=== PATIENT | male | born 1960 | race Caucasian/White ===

== ENCOUNTER 2016-10-11 11:19 | Outpatient (CLI) | payer MEDICARE ==
[~2016-10-11] VITALS: Ht 177.8 cm; Wt 120.9 kg
--- NOTE | ~2016-10-11 | HEMODYNAMI ---
PATIENT:SCOTT AQUINO MEDICAL RECORD: [id number] : 56 LOCATION:DDemetrisCAT ADMISSION DATE: 10/11/16 Generatedon:10/11/201613:41 Patient name: SCOTT AQUINO Patient #: [id number] : 1960 Date of study: 10/11/2016 Page: Of Hemodynamic Procedure Report Patient Data Patient Demographics Procedure consent was obtained First Name: SCOTT Gender: Male Last Name: KENIA : 1960 Patient #: [id number] Age: 56 year(s) Race: SSN: [id number] Additional ID: [id number] Contact details Address: [address] [place] [address] State: [facility] Zip code: [address] Past Medical History Allergies Allergen Reaction Date Comments Reported Other allergy 10/11/2016 Melecio Carballo Admission Admission Data Admission Date: 10/11/2016 Admission Time: 11:19 Arrival Date: 10/11/2016 Arrival Time: 0:00 Admit Source: Other Insurance Payor: Medicare Height (in.): 70 BSA: 2.34 (m2) Height (cm.): 177.8 BMI: 37.74 (kg/m2) Weight (lbs.): 263 Weight (kg.): 119.29 Lab Results Lab Result Date: 10/11/2016 Lab Result Time: 0:00 Biochemistry Name Units Result Min Max BUN mg/dl 17 --(---*)-- 7 18 Creatinine mg/dl 0.9 --(-*--)-- 0.6 1.3 CBC Name Units Result Min Max Hemoglobin g/dl 12.9 -*(----)-- 13.5 17.5 Procedure Procedure Types Cath Procedure Diagnostic Procedure PPM/ICD PPM Ventricular Implant Procedure Description Procedure Date Procedure Date: 10/11/2016 Procedure Start Time: 13:09 Procedure End Time: 13:36 Procedure Staff Name Function Steven Abrams MD Performing Physician Skye Guillaume RT Scrub Mariaa Castillo RN Nurse Deanne Miranda RT Monitor Nils Carter MD Assisting physician Indication Syncope Procedure Data Cath Procedure Fluoroscopy Diagnostic fluoroscopy Total fluoroscopy Time: 0.8 time: 0.8 min min Diagnostic fluoroscopy Total fluoroscopy dose: dose: 30.63 mGy 30.63 mGy Contrast Material Contrast Material Type Amount (ml) Isovue 370 0 Estimated blood loss: 5 ml Procedure Complications No complications Procedure Medications Medication Administration Route Dosage Oxygen NC 2 l/min Bupivacaine 0.5% S.Q. 20 ml Lidocaine 1% with added to field 20 ml Epi Ancef (1Gm/50ml NS) I.V.P.B 1 g Ancef Irrigation Topical 1 g (1gm/500ml NS) Fentanyl I.V. 50 mcg Versed I.V. 1 mg Hemodynamics Rest BSA: 2.34 (m2) HGB: 12.9 (g/dl) O2 Consumption: Estimated: 263.03 (ml/min) O2 Co nsumption indexed: Estimated:112.41 (ml/min/m) Heart Rate: 55 (bpm) Snapshots Pre Cath Intra NCS Post Cath Vital Signs Time Heart Resp SPO2 NIBP (mmHg) Rhythm Pain Sedation Rate (ipm) (%) Status Level (bpm) 12:58:26 74 16 100 124/78(115) NSR 0 (11) 10(A) , No pain 13:02:42 66 20 100 114/80(106) NSR 0 (11) 10(A) , No pain 13:06:50 74 19 99 114/84(100) NSR 0 (11) 10(A) , No pain 13:11:02 66 16 91 118/79(103) NSR 0 (11) 10(A) , No pain 13:15:18 69 17 96 119/76(108) NSR 0 (11) 10(A) , No pain 13:19:27 107 16 95 127/93(120) NSR 0 (11) 10(A) , No pain 13:23:39 53 23 98 131/98(120) NSR 0 (11) 10(A) , No pain 13:27:53 77 20 96 135/101(115) NSR 0 (11) 10(A) , No pain 13:32:11 76 19 94 127/86(108) NSR 0 (11) 10(A) , No pain 13:36:26 65 16 97 126/91(107) NSR 0 (11) 10(A) , No pain Medications Time Medication Route Dose Verified Delivered Reason Notes Effective ness by by 12:52:49 Oxygen NC 2 Mariaa Mariaa used for l/min Castillo Castillo coach RN 12:53:03 Bupivacaine S.Q. 20 ml Mariaa Mariaa used for 0.5% Castillo Castillo coach RN 12:53:12 Lidocaine added 20 ml Mariaa Mariaa used for 1% with Epi to Castillo Castillo procedure field RN RN 12:53:24 Ancef I.V.P.B 1 g Mariaa Mariaa Per (1Gm/50ml Castillo Castillo physician NS) RN RN 12:53:34 Ancef Topical 1 g Mariaa Mariaa used for Irrigation Castillo Castillo procedure (1gm/500ml RN RN NS) 13:10:09 Fentanyl I.V. 50 Mariaa Mariaa for mcg Castillo Castillo sedation RN RN 13:10:15 Versed I.V. 1 mg Mariaa Mariaa for Castillo Castillo sedation RN photograph finisher Log Time Note 11:48:27 Informed consent obtained and on chart 11:48:50 Diagnostic Cath Status : Elective 11:49:29 Indication : Syncope 11:50:49 Admit Source: Other 11:50:53 Patient Height : 177.8 inches 11:51:00 Patient Weight : 119.29 lbs 11:51:14 Arrival Date: 10/11/2016 12:00:00 AM 11:51:35 Insurance Payor : Medicare 12:25:00 Mariaa Castillo RN sent for patient. Start room use. 12:39:07 Time tracking: Regular hours 12:39:11 Plan of Care:Hemodynamics will remain stable., Cardiac rhythm will remain stable., Comfort level will be maintained., Respiratory function will remain adequate., Patient/ family verbilizes understanding of procedure., Procedure tolerated without complication., Recovers from procedure without complications.. 12:42:01 Lab Result : BUN 17 mg/dl 12:42:01 Lab Result : Hemoglobin 12.9 g/dl 12:42:01 Lab Result : Creatinine 0.9 mg/dl 12:44:10 Patient received from Outpatients to [facility] 1 Alert and oriented. Tansferred to table in Supine position. 12:44:11 Warm blankets applied, and lino hugger turned on for patient comfort. 12:44:12 Correct patient and procedure confirmed by team. 12:44:13 ECG and BP/O2 sat monitors applied to patient. 12:52:49 Oxygen 2 l/min NC was given by Mariaa Castillo RN; used for procedure; 12:53:03 Bupivacaine 0.5% 20 ml S.Q. was given by Mariaa Castillo RN; used for procedure; 12:53:12 Lidocaine 1% with Epi 20 ml added to field was given by Mariaa Castillo RN; used for procedure; 12:53:24 Ancef (1Gm/50ml NS) 1 g I.V.P.B was given by Mariaa Castillo RN; Per physician; 12:53:34 Ancef Irrigation (1gm/500ml NS) 1 g Topical was given by Mariaa Castillo RN; used for procedure; 12:57:17 Vital chart was started 12:57:34 Baseline sample Acquired. 12:57:38 Rhythm: atrial fibrillation 12:57:39 Full Disclosure recording started 12:57:52 H&P Date Dictated: 10/04/2016 Within 30 days and on chart., H&P Addendum completed by physician on day of procedure. (MUST COMPLETE FOR ALL OUTPATIENTS). 12:57:54 Pre-procedure instructions explained to patient. 12:57:54 Pre-op teaching completed and patient verbalized understanding. 12:57:56 Family in waiting room. 12:57:57 Patient NPO since Midnight. 12:58:20 Patient allergic to Other allergyAleve, Codeine 12:58:22 Is the patient allergic to Iodine/contrast media? No. 12:58:24 Was the patient premedicated? No 12:58:27 Is patient on blood thinner?No 12:58:40 Patient diabetic? Yes. 12:58:41 If diabetic: On Metformin? Yes 12:58:44 If on Metformin: Last Dose? 10/10/2016 12:58:47 Previous problem with sedation/anesthesia? No ? 12:58:49 Snore? Yes 12:58:50 Sleep apnea? No 12:58:51 Deviated septum? No 12:58:52 Opens mouth fully? Yes 12:58:52 Sticks out tongue? Yes 12:58:54 Airway obstruction? No ? 12:58:57 Dentures? No ? 12:59:00 Pre procedure: right dorsailis pedis pulse 1+ Palpable, but thready & weak; easily obliterated 12:59:02 Patient pain scale 0/10 ?. 12:59:27 IV patent on arrival in left hand with 0.9% NaCl at O. 12:59:30 Lab results completed and on chart. 12:59:36 Mid Chest area was prepped with chlora-prep and draped in sterile fashion 12:59:37 Alarms reviewed by R. N. 12:59:37 Sharps counted by scrub and verified by R.N. 12:59:48 Use device set Pacemaker Set 12:59:49 Mepilex Dressing opened to sterile field. 12:59:54 2.0 Ticron Multipack opened to sterile field. 12:59:54 3.0 Vicryl Multipack [id number] opened to sterile field. 12:59:55 5.0 Monocryl PS2 [id number] opened to sterile field. 12:59:57 Immobilizer Extra Large opened to sterile field. 13:00:54 Procedure type changed to Cath procedure, Diagnostic procedure, PPM/ICD, PPM Ventricular Implant 13:01:20 Medtronic Adapta PPM Single Generator opened to sterile field. 13:03:10 Medtronic 4092-52 PPM Lead opened to sterile field. 13:09:01 Physician arrived 13:09:02 --------ALL STOP TIME OUT------ 13:09:02 Final Timeout: patient, procedure, and site verified with staff and physician. All members of the team are in agreement. 13:09:05 Mid Chest site verified by team. 13:09:10 Physical assessment completed. ASA score P 2 - A patient with mild systemic disease as per Steven Abrams MD. 13:09:15 Sedation plan: IV Moderate Sedation Versed, Fentanyl 13::22 Procedure started. 13::09 Fentanyl 50 mcg I.V. was given by Mariaa Castillo RN; for sedation; 13::15 Versed 1 mg I.V. was given by Mariaa Castillo RN; for sedation; 13:13:37 Medtronic retail field representative Tyrell Hughes present for procedure. 13:14:26 Pre sharps counted by scrub and verified by RN: Sutures: 14 Sponges: 5 Stick needles: 2 Skin needles: 2 Blade: 1 Cautery: 1 13:14:30 Grounding pad site Left thigh. 13:14:32 Grounding pad site free from injury. 13:14:38 Lidocaine 1% w/epi to left subclavicular area by Nils Carter MD. 13:14:41 Incision made to left subclavicular area. 13:19:03 Generator pocket made/opened. 13:20:14 Left subclavian vein accessed with 7Fr Safe Sheath. 13:22:04 Ventricular lead inserted and advanced. 13:22:40 Baseline sample Acquired. 13:24:43 Ventricular lead positioned. 13:26:59 Peel-a-way sheath was split and removed. 13:29:54 Ventricular lead attachment was completed with 2-0 ticron. 13:31:42 PPM Single was attached to lead(s) and inserted into pocket. 13:33:15 Generator was sutured in place with 2-0 ticron. 13:33:16 Device pocket was irrigated with Ancef. 13:33:19 Subcutaneous closure was completed with 3-0 vicryl plus. 13:35:25 Skin closure was completed with 5-0 monocryl. 13:35:36 Lt Chest incision was dressed with Mepilex dressing. 13:35:43 Procedure ended.(Physican Out) 13:35:56 Fluoroscopy time 00.80 minutes. 13:36:06 Fluoroscopy dose: 30.63 mGy 13:36:06 Flurop Dose total: 30.63 13:36:09 Contrast amount:Isovue 370 0ml. 13:36:11 Sharps counted by scrub and verified by R.N. 13:36:16 Insertion/operative site no bleeding no hematoma. 13:36:24 Post left sublavian artery:stable 13:36:26 Post Procedure Pulses reassessed and unchanged 13:36:29 Post procedure rhythm: unchanged. 13:36:32 Estimated blood loss: 5 ml 13:36:33 Post procedure instruction explained to patient.Patient verbalizes understanding. 13:36:33 Patient needs reinforcement of post procedure teaching. 13:36:35 Procedure and supply charges have been captured, reviewed, submitted and are correct. 13:36:39 Procedure Complication : No complications 13:36:41 Vital chart was stopped 13:36:41 See physician's report for complete and final results. 13:36:45 Report given to Med II. 13:36:47 Patient transfered to Med II with Stretcher. 13:36:49 Procedure ended. 13:36:49 Full Disclosure recording stopped 13:36:53 End room use (Document Last) 13:40:25 Parameters--Ventricular P/R Wave: 4.5mV. Current: 0.4mA; Threshold: 0.3V; Impedence: 621OHMS. Device Usage Item Name Manufacture Quantity Catalog Hospital Part Current Minimal Lot# / Number Charge Number Stock Stock Serial# Code Mepilex [place] 1 [id number] 053251 [id number] 5 Dressing Health 2.0 Ticron Ethicon 9 [id number] 770203 06634 747754 5 Multipack 3.0 Vicryl Ethicon 1 [id number] 660202 743125 184949 5 Multipack [id number] 5.0 Ethicon 1 [id number] 883212 123765 994733 5 Monocryl PS2 Y495G Immobilizer [place] 1 [id number] 479132 110288 219923 5 Extra Large Health Medtronic Medtronic 1 [id number] 413423 126962 5 [id number] Adapta PPM EXP Single 02-13-18 Generator Medtronic Medtronic 1 4092-52 012887 403637 5 [id number] 4092-52 PPM EXP Lead 11-13-16 Signature Audit [place] Stage Time Signature Unsigned Intra-Procedure 10/11/2016 Deanne Miranda 1:41:07 PM RT(R) Signatures Monitor : Deanne Miranda RT Signature : Date : Time : [facility] [address] [place] [address]
[2016-10-11] MEDS ORDERED: TAZTIA XT360 MG PO ×2 (11:52→11:58)
[2016-10-11] MEDS ORDERED: PROZAC10 MG PO (11:53)
[2016-10-11] MEDS ORDERED: MOBIC7.5 MG PO (11:54)
[2016-10-11] MEDS ORDERED: TRAZODONE HCL50 MG PO (11:54)
[2016-10-11] MEDS ORDERED: EFFEXOR75 MG PO (11:55)
[2016-10-11] MEDS ORDERED: REGLAN10 MG PO (11:59)
[2016-10-11] MEDS ORDERED: PROTONIX40 MG PO (11:59)
[2016-10-11] MEDS ORDERED: PAMELOR 25 MG C25 MG PO (12:01)
[2016-10-11] MEDS ORDERED: PRAVACHOL40 MG PO (12:02)
[2016-10-11] MEDS ORDERED: GLUCOPHAGE1000 MG PO (12:05)
[2016-10-11] MEDS ORDERED: BETAPACE 80 MG80 MG PO (12:06)
[2016-10-11] MEDS ORDERED: ALDACTONE50 MG PO (12:06)
[2016-10-11] MEDS ORDERED: COUMADIN5 MG PO (12:07)
[2016-10-11] MEDS ORDERED: NITROSTAT0.4 MG SL (12:08)
[2016-10-11 12:26] VITALS: BP 131/86; BMI 38.2
[2016-10-11 12:29] LABS: INR 1.12 (0.85-1.17); PROTIME 14.2 SECONDS (11.6-15.0)
[2016-10-11 12:30] LABS: APTT 29.8 SECONDS (22.8-39.4); BASOPHILS 0.5 % (0.0-2.0); EOSINOPHILS 1.6 % (0-7); HEMATOCRIT 37.5 % (42.0-54.0); HEMOGLOBIN 12.9 g/dL (13.5-17.5); IMMATURE GRANULOCYTES 0.6 % (0-5); LYMPHOCYTES 27.2 % (15-50); MCH 34.8 pg (26.0-34.0); MCHC 34.4 g/dL (31.0-37.0); MCV 101.1 fL (80.0-100.0); MEAN PLATELET VOLUME 10.5 fL (7.4-10.4); MONOCYTES 8.6 % (2-11); NEUTROPHILS 61.5 % (40-80); PLATELET COUNT 135 10x3/uL (130-400); RBC 3.71 10x6/uL (4.20-6.10); WBC 6.3 10x3/uL (4.8-10.8)
[2016-10-11 12:39] LABS: CALC OSMOLALITY 279 mosm/kg (275-300); CALCIUM 9.4 mg/dL (8.5-10.1); CARBON DIOXIDE 29.3 mmol/L (21.0-32.0); CHLORIDE - SERUM 102 mmol/L (98-107); CREATININE - SERUM 0.9 mg/dL (0.6-1.3); GLUCOSE 93 mg/dL (74-106); POTASSIUM - SERUM 4.4 mmol/L (3.5-5.1); SODIUM 139 mmol/L (136-145); UREA NITROGEN 17 mg/dL (7-18); eGFR NON AFRICAN AMERICAN > 90 mL/min (90-120)
--- NOTE | 2016-10-11 14:06 | NUR ---
TRANSFER FROM SALES SPECIALIST BY BED. VS WNL. LEFT CHEST DRSG CLEAN AND DRY. LEFT ARM IN SLING. WILL CONT. PLAN OF CARE.
[2016-10-11 14:43] VITALS: BP 119/68; Ht 177.8 cm; Wt 120.9 kg
[2016-10-11 16:00] VITALS: BP 110/68
--- NOTE | 2016-10-11 19:32 | NUR ---
RESUMED CARE OF PT, LYING IN BED RESPIRATIONS EVEN AND UNLABORED ON CPAP. 75 CAF ON TELEMETRY. LEFT FOREARM SALINE LOCKED. LEFT CHEST INCISION C/D/I, LEFT ARM IN SLING. NO NEEDS VOICED AT THIS TIME. CALL LIGHT IN REACH. WILL CONTINUE TO MONITOR. SEE NURSE ASSESSMENT.
[2016-10-11 20:00] VITALS: BP 130/86
[2016-10-12] VITALS: BP 124/99
[2016-10-12 04:00] VITALS: BP 128/85
[2016-10-12 08:00] VITALS: BP 142/94
--- NOTE | 2016-10-12 09:33 | NUR ---
TELEMETRY CAF. METRONICS CLEARED PACEMAKER FOR DC. IV AND TELEMETRY DCD. WILL CONT. PLAN OF CARE.
[2016-10-12] MEDS ORDERED: DILAUDID2 MG PO (09:45)
--- NOTE | 2016-10-12 10:22 | NUR ---
IV AND TELEMETRY DCD. DC PLANS GIVEN. UNDERSTANDING VOICED. ESCORTED TO CAR BY W/C.
--- NOTE | 2016-10-12 13:33 | OP ---
PATIENT NAME: SCOTT AQUINO MEDICAL RECORD: [id number] :56 LOCATION:D.CAT ADMISSION DATE: SURGEON: NILS BELL MD DATE OF OPERATION: 10/11/2016 PREOPERATIVE DIAGNOSES: 1. Atrial fibrillation. 2. Syncope. 3. Hypertension. 4. Hyperlipidemia. POSTOPERATIVE DIAGNOSES: 1. Atrial fibrillation. 2. Syncope. 3. Hypertension. 4. Hyperlipidemia. PROCEDURE: 1. A single lead left subclavian vein. Pacemaker placement. 2. Fluoroscopic interpretation. SURGEON: Nils Bell MD CO-SURGEON: Steven Abrams. REPORT OF OPERATION: The patient's left chest was prepped and draped in sterile fashion. A total of 25 mL of 1% lidocaine with epinephrine was infused into the tissues in the left upper chest. A skin incision was then made over the left upper lateral chest and a subcutaneous pouch was made overlying the pectoral fascia. A needle was used to cannulate the left subclavian vein. The guidewire was advanced with ease. Fluoro was used to note that the wire was in good position in the venous system. A dilator trocar device was placed over the wire and the wire and dilator were removed. The ventricular lead was inserted. At this point, Dr. Abrams came and manipulated the lead until it rested appropriately in the right ventricle. At this point, the trocar was removed. The lead was sutured down to the pectoral fascia using an interrupted 0 Tycron. The lead was then affixed to the pacemaker and the pacemaker was inserted into the subcutaneous pouch and sutured down with an 0 Tycron. We irrigated out the wound with antibiotic solution. The subcutaneous tissues were reapproximated with interrupted 3-0 Vicryls and the skin was closed with running subcutaneous 5-0 Monocryl. COMPLICATIONS: None. CONDITION: Stable. ANESTHESIA: Local. BLOOD LOSS: Minimal. TRANSINT:[id number] Voice Confirmation ID: [id number] DOCUMENT ID: [id number] OPERATIVE REPORT [id number] KENIASCOTT AKHTAR NILS BELL MD at 1333 CC: CARMENZA ORTIZ MD and BIJU ORELLANA MD [id number] DICTATION DATE: 10/11/16 1343 GAS LOAD DISPATCHER: 10/11/16 1439 DEP CLI 10/12/16 [facility] [address] [place] [address]
--- NOTE | 2016-10-15 14:24 | OP ---
PATIENT NAME: SCOTT AQUINO MEDICAL RECORD: [id number] :56 LOCATION:D.CAT ADMISSION DATE: SURGEON: TAMELA IBARRA MD DATE OF OPERATION: 10/11/2016 PROCEDURE: Lead portion of permanent pacemaker placement. SURGEON: Nils Carter MD INDICATION: Sick sinus syndrome with tachybrady. DESCRIPTION OF PROCEDURE: After left subclavian was cannulated via modified Seldinger technique via Dr. Carter, under fluoroscopic guidance, I placed the RV lead in the RV apex without difficulty. After adequate R waves and thresholds were obtained, the leads were attached to appropriate poles of the generator and the pocket was closed via Dr. Carter. IMPRESSION: Successful lead portion of permanent pacemaker placement. COMPLICATIONS: None. ESTIMATED BLOOD LOSS: Minimal. DISPOSITION: To the floor, stable. TRANSINT:[id number] Voice Confirmation ID: [id number] DOCUMENT ID: [id number] TAMELA IBARRA MD at 1424 CC: [id number] DICTATION DATE: 10/11/16 1334 DIVER TENDER: 10/11/162026 DEP CLI 10/12/16 [facility] [id number] [place] [address]
== END 2016-10-12 10:23 | disposition home or self-care (01) ==
LOC: D.CATH 11:19 → D.M2 14:02 → D.CATH 10-12 10:23
PROVIDERS: Internal Medicine Interventional Cardiology
DX: I49.5 Sick sinus syndrome (principal); I10 Essential (primary) hypertension; E78.5 Hyperlipidemia, unspecified

== ENCOUNTER 2016-11-08 03:05 | Emergency (ER) | payer MEDICARE ==
[~2016-11-08 03:05] MED LIST: ALDACTONE50 MG PO; BETAPACE 80 MG80 MG PO; COUMADIN5 MG PO; DILAUDID2 MG PO; EFFEXOR75 MG PO; GLUCOPHAGE1000 MG PO; MOBIC7.5 MG PO; NITROSTAT0.4 MG SL; PAMELOR 25 MG C25 MG PO; PRAVACHOL40 MG PO; PROTONIX40 MG PO; PROZAC10 MG PO; REGLAN10 MG PO; TAZTIA XT360 MG PO; TRAZODONE HCL50 MG PO
[2016-11-08 05:00] LABS: BASOPHILS 0.4 % (0.0-2.0); EOSINOPHILS 2.9 % (0-7); HEMATOCRIT 44.3 % (42.0-54.0); HEMOGLOBIN 15.2 g/dL (13.5-17.5); IMMATURE GRANULOCYTES 0.7 % (0-5); LYMPHOCYTES 20.7 % (15-50); MCH 34.8 pg (26.0-34.0); MCHC 34.3 g/dL (31.0-37.0); MCV 101.4 fL (80.0-100.0); MEAN PLATELET VOLUME 10.7 fL (7.4-10.4); NEUTROPHILS 67.3 % (40-80); PLATELET COUNT 111 10x3/uL (130-400); RBC 4.37 10x6/uL (4.20-6.10); RDW 13.2 % (11.5-14.5); WBC 7.3 10x3/uL (4.8-10.8)
[2016-11-08 05:13] LABS: APTT 52.3 SECONDS (22.8-39.4); INR 3.42 (0.85-1.17); PROTIME 34.9 SECONDS (11.6-15.0)
[2016-11-08 05:16] LABS: ALBUMIN 3.8 g/dL (3.4-5.0); ALKALINE PHOSPHATASE 66 U/L (46-116); ALT (SGPT) 23 U/L (10-68); BILIRUBIN - TOTAL 0.31 mg/dL (0.2-1.3); CALC OSMOLALITY 277 mosm/kg (275-300); CALCIUM 8.9 mg/dL (8.5-10.1); CARBON DIOXIDE 25.7 mmol/L (21.0-32.0); CHLORIDE - SERUM 102 mmol/L (98-107); GLUCOSE 86 mg/dL (74-106); POTASSIUM - SERUM 4.8 mmol/L (3.5-5.1); PROTEIN - SERUM 7.6 g/dL (6.4-8.2); SODIUM 139 mmol/L (136-145); UREA NITROGEN 16 mg/dL (7-18); eGFR NON AFRICAN AMERICAN 81 mL/min (90-120)
[2016-11-08 05:21] LABS: TROPONIN-I < 0.017 ng/mL (0.000-0.060)
== END 2016-11-08 06:50 | disposition home or self-care (01) ==
LOC: D.ER 03:05
PROVIDERS: Family Medicine
DX: S16.1XXA Strain of muscle, fascia and tendon at neck level, initial encounter (principal); X58.XXXA Exposure to other specified factors, initial encounter; Y93.89 Activity, other specified; Y92.89 Other specified places as the place of occurrence of the external cause; S39.012A Strain of muscle, fascia and tendon of lower back, initial encounter; I48.91 Unspecified atrial fibrillation

== ENCOUNTER 2017-10-22 09:25 | Emergency (ER) | payer MEDICARE ==
[2016-10-11 14:43] VITALS: BMI 38.2
[2017-10-22 09:53] LABS: APPEARANCE CLEAR (CLEAR); BILIRUBIN NEGATIVE (NEGATIVE); COLOR YELLOW (YELLOW); GLUCOSE 50 mg/dL (NEGATIVE); KETONE SMALL mg/dL (NEGATIVE); NITRITE NEGATIVE (NEGATIVE); PROTEIN NEGATIVE (NEGATIVE); UROBILINOGEN NORMAL (NORMAL)
[2017-10-22 10:04] LABS: BASOPHILS 0.5 % (0-2); EOSINOPHILS 0.8 % (0-7); HEMATOCRIT 45.6 % (42.0-54.0); IMMATURE GRANULOCYTES 0.5 % (0-5); LYMPHOCYTES 13.6 % (15-50); MCH 36.3 pg (26.0-34.0); MCHC 35.1 g/dL (31.0-37.0); MCV 103.4 fL (80.0-100.0); MEAN PLATELET VOLUME 10.7 fL (7.4-10.4); MONOCYTES 6.2 % (2-11); NEUTROPHILS 78.4 % (40-80); PLATELET COUNT 117 10x3/uL (130-400); RBC 4.41 10x6/uL (4.20-6.10); RDW 14.2 % (11.5-14.5); WBC 8.7 10x3/uL (4.8-10.8)
[2017-10-22 10:14] LABS: ALBUMIN 4.1 g/dL (3.4-5.0); ANION GAP 17.9 mmol/L (8-16); BILIRUBIN - TOTAL 0.61 mg/dL (0.2-1.3); CALCIUM 9.1 mg/dL (8.5-10.1); CARBON DIOXIDE 23.7 mmol/L (21.0-32.0); CREATININE - SERUM 1.2 mg/dL (0.6-1.3); POTASSIUM - SERUM 3.6 mmol/L (3.5-5.1)
== END 2017-10-22 13:40 | disposition home or self-care (01) ==
LOC: D.ER 09:25
PROVIDERS: Emergency Medicine
DX: K29.00 Acute gastritis without bleeding (principal); I10 Essential (primary) hypertension; E11.9 Type 2 diabetes mellitus without complications; G47.419 Narcolepsy without cataplexy; Z95.0 Presence of cardiac pacemaker; F17.200 Nicotine dependence, unspecified, uncomplicated; I48.91 Unspecified atrial fibrillation; I49.3 Ventricular premature depolarization

== ENCOUNTER 2017-10-26 06:43 | Inpatient (IN) | payer MEDICARE ==
[~2017-10-26] VITALS: Ht 177.8 cm; Wt 131.8 kg
[2017-10-26 07:52] LABS: BASOPHILS 0.5 % (0-2); HEMATOCRIT 46.2 % (42.0-54.0); HEMOGLOBIN 16.3 g/dL (13.5-17.5); IMMATURE GRANULOCYTES 0.5 % (0-5); LYMPHOCYTES 18.5 % (15-50); MCH 36.1 pg (26.0-34.0); MCHC 35.3 g/dL (31.0-37.0); MCV 102.2 fL (80.0-100.0); MEAN PLATELET VOLUME 10.5 fL (7.4-10.4); MONOCYTES 5.9 % (2-11); NEUTROPHILS 73.6 % (40-80); PLATELET COUNT 119 10x3/uL (130-400); RBC 4.52 10x6/uL (4.20-6.10); RDW 13.7 % (11.5-14.5); WBC 8.2 10x3/uL (4.8-10.8)
[2017-10-26 08:05] LABS: ALBUMIN 4.1 g/dL (3.4-5.0); ANION GAP 13.8 mmol/L (8-16); BILIRUBIN - TOTAL 0.54 mg/dL (0.2-1.3); CALCIUM 9.7 mg/dL (8.5-10.1); CARBON DIOXIDE 24.7 mmol/L (21.0-32.0); CREATININE - SERUM 1.5 mg/dL (0.6-1.3); POTASSIUM - SERUM 4.5 mmol/L (3.5-5.1)
[2017-10-26 09:45] LABS: APPEARANCE CLEAR (CLEAR); BILIRUBIN NEGATIVE (NEGATIVE); COLOR YELLOW (YELLOW); GLUCOSE NEGATIVE (NEGATIVE); KETONE SMALL mg/dL (NEGATIVE); NITRITE NEGATIVE (NEGATIVE); PROTEIN 1+ mg/dL (NEGATIVE); SPECIFIC GRAVITY 1.015 (1.005-1.020); UROBILINOGEN NORMAL (NORMAL)
[2017-10-26 09:46] LABS: BACTERIA FEW /hpf (NONE SEEN); EPITHELIAL CELLS 0-5 /hpf (0-5); HYALINE CAST 0-5 /lpf (NONE SEEN); MUCUS <1+ /lpf (NONE SEEN); RED CELLS - URINE 0-5 /hpf (0-5); WHITE CELLS - URINE 0-5 /hpf (0-5)
[2017-10-26 15:00] LABS: INR 2.18 (0.85-1.17); PROTIME 23.7 SECONDS (11.6-15.0)
[2017-10-26 19:14] VITALS: BP 131/75; Ht 177.8 cm; Wt 131.8 kg
[2017-10-26] MEDS ORDERED: HYDROCODONE-APA1 TAB PO (19:35)
[2017-10-26] MEDS ORDERED: OMEPRAZOLE40 MG PO (19:38)
[2017-10-26] MEDS ORDERED: COREG12.5 MG PO (19:39)
[2017-10-26] MEDS ORDERED: ADDERALL 30 MG30 MG PO (19:41)
[2017-10-26 21:57] VITALS: BP 116/80
[2017-10-27 00:57] VITALS: BP 118/84
[2017-10-27 05:37] LABS: BASOPHILS 0.4 % (0-2); EOSINOPHILS 1.5 % (0-7); HEMATOCRIT 39.5 % (42.0-54.0); HEMOGLOBIN 13.2 g/dL (13.5-17.5); IMMATURE GRANULOCYTES 0.2 % (0-5); LYMPHOCYTES 23.6 % (15-50); MCHC 33.4 g/dL (31.0-37.0); MEAN PLATELET VOLUME 10.4 fL (7.4-10.4); MONOCYTES 8.9 % (2-11); NEUTROPHILS 65.4 % (40-80); PLATELET COUNT 104 10x3/uL (130-400); RBC 3.77 10x6/uL (4.20-6.10); RDW 14.2 % (11.5-14.5)
[2017-10-27 05:45] VITALS: BP 124/84
[2017-10-27 05:45] LABS: MCV 104.8 fL (80.0-100.0); WBC 5.4 10x3/uL (4.8-10.8)
[2017-10-27 05:49] LABS: INR 2.55 (0.85-1.17); PROTIME 26.7 SECONDS (11.6-15.0)
[2017-10-27 06:03] LABS: ANION GAP 10.9 mmol/L (8-16); BILIRUBIN - TOTAL 0.5 mg/dL (0.2-1.3); CARBON DIOXIDE 28.6 mmol/L (21.0-32.0); CREATININE - SERUM 1.2 mg/dL (0.6-1.3); POTASSIUM - SERUM 4.5 mmol/L (3.5-5.1); PROTEIN - SERUM 6.1 g/dL (6.4-8.2)
[2017-10-27 09:16] VITALS: BP 113/74
[2017-10-27 12:08] VITALS: BP 109/70
[2017-10-27 16:07] VITALS: BP 123/88
[2017-10-27 23:18] VITALS: BP 151/97
[2017-10-28 04:00] VITALS: BP 132/88
[2017-10-28 05:10] LABS: BASOPHILS 0.5 % (0-2); EOSINOPHILS 1.4 % (0-7); HEMOGLOBIN 13.3 g/dL (13.5-17.5); IMMATURE GRANULOCYTES 0.5 % (0-5); MCH 35.3 pg (26.0-34.0); MCHC 33.3 g/dL (31.0-37.0); MCV 106.1 fL (80.0-100.0); MONOCYTES 9.8 % (2-11); NEUTROPHILS 55.8 % (40-80); PLATELET COUNT 103 10x3/uL (130-400); RBC 3.77 10x6/uL (4.20-6.10); RDW 13.9 % (11.5-14.5); WBC 4.4 10x3/uL (4.8-10.8)
[2017-10-28 05:26] LABS: INR 1.34 (0.85-1.17); PROTIME 16.1 SECONDS (11.6-15.0)
[2017-10-28 06:08] LABS: ALBUMIN 3.1 g/dL (3.4-5.0); ANION GAP 12.5 mmol/L (8-16); BILIRUBIN - TOTAL 0.67 mg/dL (0.2-1.3); CALCIUM 8.8 mg/dL (8.5-10.1); CARBON DIOXIDE 28.1 mmol/L (21.0-32.0); CREATININE - SERUM 1.2 mg/dL (0.6-1.3); POTASSIUM - SERUM 4.6 mmol/L (3.5-5.1); PROTEIN - SERUM 6.4 g/dL (6.4-8.2)
[2017-10-28 08:25] VITALS: BP 131/75
[2017-10-28 14:08] VITALS: BP 125/84
[2017-10-28 15:21] VITALS: BP 110/69
[2017-10-28 20:00] VITALS: BP 109/61
[2017-10-29 04:00] VITALS: BP 119/75
[2017-10-29 04:33] LABS: BASOPHILS 0.4 % (0-2); EOSINOPHILS 1.1 % (0-7); HEMATOCRIT 43.7 % (42.0-54.0); HEMOGLOBIN 14.2 g/dL (13.5-17.5); IMMATURE GRANULOCYTES 0.4 % (0-5); LYMPHOCYTES 16.7 % (15-50); MCHC 32.5 g/dL (31.0-37.0); MCV 107.6 fL (80.0-100.0); MEAN PLATELET VOLUME 10.8 fL (7.4-10.4); MONOCYTES 8.1 % (2-11); NEUTROPHILS 73.3 % (40-80); PLATELET COUNT 119 10x3/uL (130-400); RBC 4.06 10x6/uL (4.20-6.10); RDW 13.9 % (11.5-14.5); WBC 5.5 10x3/uL (4.8-10.8)
[2017-10-29 04:44] LABS: PROTIME 13.4 SECONDS (11.6-15.0)
[2017-10-29 04:45] LABS: INR 1.06 (0.85-1.17)
[2017-10-29 04:53] LABS: ALBUMIN 3.5 g/dL (3.4-5.0); ANION GAP 14.1 mmol/L (8-16); BILIRUBIN - TOTAL 1.2 mg/dL (0.2-1.3); CALCIUM 8.8 mg/dL (8.5-10.1); CARBON DIOXIDE 27.7 mmol/L (21.0-32.0); CREATININE - SERUM 1.4 mg/dL (0.6-1.3); POTASSIUM - SERUM 4.8 mmol/L (3.5-5.1)
[2017-10-29 09:39] VITALS: BP 95/69
[2017-10-29 12:02] VITALS: BP 109/69
[2017-10-29] MEDS ORDERED: MIRALAX527 GM PO (15:35)
[2017-10-29] MEDS ORDERED: DULCOLAX STOOL100 MG PO (15:36)
== END 2017-10-29 16:54 | disposition home or self-care (01) | DRG 357 ==
LOC: D.ER 06:43 → D.MS 10:03
PROVIDERS: Family Medicine; Surgery
PROC: 0FT44ZZ Resection of Gallbladder, Percutaneous Endoscopic Approach (ICD-10-PCS; principal; 2017-10-28 12:45)
DX: K56.7 Ileus, unspecified (principal); N17.9 Acute kidney failure, unspecified; E87.1 Hypo-osmolality and hyponatremia; F17.203 Nicotine dependence unspecified, with withdrawal; K82.8 Other specified diseases of gallbladder; I48.91 Unspecified atrial fibrillation; E86.0 Dehydration; Z95.0 Presence of cardiac pacemaker; G47.33 Obstructive sleep apnea (adult) (pediatric); E11.65 Type 2 diabetes mellitus with hyperglycemia; G47.419 Narcolepsy without cataplexy

== ENCOUNTER 2017-12-02 09:35 | Emergency (ER) | payer MEDICARE ==
[2017-10-26 19:14] VITALS: BMI 41.6
[~2017-12-02 09:35] MED LIST changes: +ADDERALL 30 MG30 MG PO; +COREG12.5 MG PO; +DULCOLAX STOOL100 MG PO; +HYDROCODONE-APA1 TAB PO; +MIRALAX527 GM PO; +OMEPRAZOLE40 MG PO
== END 2017-12-02 14:57 | disposition left against medical advice (07) ==
LOC: D.ER 09:35
DX: M54.5 Low back pain (principal)

== ENCOUNTER 2018-06-10 13:58 | Inpatient (IN) | payer MEDICARE ==
[~2018-06-10] VITALS: Ht 177.8 cm; Wt 137.9 kg
--- NOTE | ~2018-06-10 | EC ---
PATIENT:SCOTT AQUINO DATE OF SERVICE: 06/11/18 SEX: M MEDICAL RECORD: [id number] DATE OF : 56 LOCATION:D.M2 D.211 AGE OF PATIENT: 58 ADMISSION DATE: 06/11/18 REFERRING PHYSICIAN: INTERPRETING PHYSICIAN: BIJU HENNING MD ECHOCARDIOGRAM REPORT ECHO CHARGES 4 ECHO COMPLETE Date: 06/11/18 CLINICAL DIAGNOSIS: AFIB ECHOCARDIOGRAPHIC MEASUREMENTS (adult normal given) AC root (d.<3.7cm) 3.4 cm LV Septum d (<1.2 cm> 1.2 cm Valve Excursion 2.0 cm LV Septum (systole) 1.5 cm Left Atria (s.<4.0cm> 4.9 cm LVPW d(<1.2cm) 0.7 cm RV (d.<2.3cm) 3.7 cm LVPW (sytole) 1.4 cm LV diastole(<5.6CM) 6.1 cm MV E-F(>70mm/sec) cm LV systole 5.1 cm LVOT Diameter 2.0 cm MV exc.(>10mm) cm Est.ejection fraction (50-75%) % DOPPLER: LVIT cm/sec A 34 cm/sec E 107 cm/sec LA cm/sec RVSP 33.8 mmHg LVOT 84 cm/sec AOP1/2T m/s Asc. Ao 114 cm/sec RVOT 53 cm/sec RA cm/sec PA 62 cm/sec AV Gradient Peak 5.2 mmHg AV Mean 2.6 mmHg AV Area 2.6 cm MV Gradient Peak 5.3 mmHg MV Mean 2.1 mmHg MV Area cm COMMENTS: Manager Animation: Drew HAMILTON Selling Specialist: 1 Dr. Henning TAPE# PACS Pericardial Effusion N DATE OF SERVICE: 06/11/2018 FINDINGS: 1. Left ventricular chamber size is mildly dilated. Left ventricular systolic function is preserved. Ejection fraction equals 55%. 2. Left atrium is enlarged at 4.9 cm. Right atrium and right ventricle chamber sizes are iirsaalt-sx-jwgwlsux dilated. 3. Valvular structures have normal structure and motion. 4. Doppler interrogation reveals whdx-jw-veombtha mitral regurgitation and mild to moderate tricuspid regurgitation. No other valvular insufficiency or ECHOCARDIOGRAM REPORT [id number] SCOTT AQUINO stenosis. 5. No evidence of pericardial effusion or left ventricular thrombus. TRANSINT:[id number] Voice Confirmation ID: [id number] DOCUMENT ID: [id number] BIJU HENNING MD at 1914 CC: [id number] DICTATION DATE: 06/11/18 163 CERTIFIED ADAPTED PHYSICAL EDUCATOR: 06/11/18 1815 DIS IN 06/13/[address] [facility] [address] [place] [id number]
--- NOTE | ~2018-06-10 | OP ---
PATIENT NAME: SCOTT AQUINO MEDICAL RECORD: [id number] :56 LOCATION:D.M2 D.2114 ADMISSION DATE:06/11/18 SURGEON: PAYTON DEGROOT MD DATE OF OPERATION: 06/12/2018 PROCEDURE: EGD with biopsy. SURVEY RESEARCH MANAGER: Payton Degroot MD SCOPE: Olympus video gastroscope. MEDICATIONS: Per TIVA, the patient received 300 mg of propofol for this procedure, O2 4 liters. INDICATION FOR THE PROCEDURE: The patient has had a gastric sleeve and for the past 3 months he has had epigastric pain, nausea, vomiting and symptoms of reflux. He had an upper GI, which did not show any stricture, ulcerations and did exhibit good motility. He will have an EGD this date. FINDINGS: Informed consent was given. The patient was made comfortable with the above medications. After reaching an adequate level of sedation by slow IV push, the patient was placed on his left side. The endoscope was then advanced under direct visualization through the posterior pharyngeal area and advanced to the distal esophagus. A spasm was noted with advancement of the scope through the distal esophagus, but no derik stricture was appreciated. With the spasm abating, the distal esophageal pressure did appear to be normal. We did see some mild inflammation at the distal esophageal area and this was biopsied. No ulcers or erosions were appreciated. On entering the stomach, the gastric sleeve was appreciated and we began to examine all the areas of the stomach sequentially. The patient had mild inflammation throughout the stomach except at the antral area where some erosions were appreciated along with some streaking and erythema in this area. Biopsies were taken looking for Helicobacter pylori and histopathology. We then entered the duodenal bulb where a raised polypoid structure was noted and a biopsy was taken. We proceeded to the second part of the duodenum where only minimal inflammation was present, we also biopsied this area for thoroughness. The scope was then withdrawn. IMPRESSION: 1. The patient is status post a sleeve gastrectomy. 2. Mild inflammation present in the second part of the duodenum, biopsied. 3. Duodenal bulb polyp biopsied. 4. Erosive gastritis, most pronounced at the antral area, biopsy obtained. 5. Mild distal esophagitis, biopsied the gastroesophageal junction. 6. Distal esophageal spasms. No significant stricture. PLAN: We will place the patient on Protonix at a dose of 40 mg p.o. every day and famotidine 40 mg p.o. at bedtime. He should take the Protonix in the morning. Additionally for spasm, we will provide him with a prescription for Levsin 0.125 mg sublingual every 4 to 6 hours p.r.n. esophageal spasm and hopefully this will be helpful. The patient is to follow reflux precautions stringently, both dietary and positional as it has been noted that the patient does reflux significantly. This was seen in the upper GI and he is noted to reflux to the upper thoracic esophagus. He should avoid chocolate, tomato, citrus, caffeine, fatty foods, peppermint, not eat late at night and sit up for at least 2 hours after every meal, sleep with the head of the bed elevated at OPERATIVE REPORT [id number] SCOTT AQUINO bedtime. No anti-inflammatory drugs please. Return to clinic on a p.r.n. basis. TRANSINT:[id number] Voice Confirmation ID: [id number] DOCUMENT ID: [id number] PAYTON DEGROOT MD at 1304 CC: CHATO HARVEY MD [id number] DICTATION DATE: 06/12/18 1504 COMMISSIONING AGENT: 06/12/18 1640 DIS IN 06/13/18 [facility] [address] [place] [address]
--- NOTE | ~2018-06-10 | MORECARE ---
CASE MANAGEMENT DISCHARGE SUMMARY PATIENT: SCOTT AQUINO ULICES UNIT: [id number] ADM DATE: 06/11/18 AGE: 58 : 56 SEX: M ROOM/BED: D.6944 AUTHOR: ASHLEY AGUILAR PHYSICIAN: REFERRING PHYSICIAN: CARMENZA ORTIZ MD DATE OF SERVICE: 06/16/18 Discharge Plan Patient Name: SCOTT AQUINO Facility: [facility]:[place] : 1960 Planned Disposition: Home Anticipated Discharge Date: 06/13/18 Discharge Date: 06/13/2018 Expected LOS: 2 Initial Reviewer: [email or web address] Initial Review Date: 06/13/2018 Generated: 06/16/18 9:53 am Comments DCP- Discharge Planning Updated by [email or web address]: Gregoria Martinez on 06/13/18 11:[address] Patient Name: SCOTT AQUINO Admission Status: Urgent Accout number: [id number] Admission Date: 06-11-2018 : 1960 Admission Diagnosis: Attending: DIANA, Current LOS: 2 Anticipated DC Date: 06-13-2018 Planned Disposition: Home Primary Insurance: MEDICARE A & B Discharge Planning Comments: CM MET WITH PATIENT ABOUT DC PLANNING. PLANS TO DC TO HOME AND STATES SOMEONE WILL MERCHANDISE ASSOCIATE. STATES HE HAS A CAREGIVER THAT COMES 3 DAYS A WEEK, [facility] HAS IT THROUGH [facility]. CM WILL CONTINUE TO FOLLOW AND ASSIST NEEDED WITH DC PLANNING/NEEDS. Director Of Adult Epilepsy: Gregoria Martinez DCPIA - Discharge Planning Initial Assessment Updated by [email or web address]: Gregoria Martinez on 06/13/18 12:12 pm * Is the patient Alert and Oriented? Yes * PCP DIANA * Pharmacy ED * Preadmission Environment Home Alone * ADLs Independent * Equipment CPAP Walker Wheelchair * List name and contact numbers for known caregivers / representatives who currently or will assist patient after discharge: SISTER BAHENA, * Community resources currently utilized Private Duty Care * Please name any agencies selected above. [facility] [phone], [facility] HAS A CAREGIVER THAT COMES 3 TIMES A WEEK. * Additional services required to return to the preadmission environment? No * Can the patient safely return to the preadmission environment? Yes * Has this patient been hospitalized within the prior 30 days at any hospital? No Last DP export: 06/13/18 11:23 Patient Name: SCOTT AQUINO Page [id number] at 0853 All edits/amendments must be made on the electronic document DICTATION DATE: 06/16/18852 SERVICE CAR OPERATOR: BORIS 06/16/18852 RPT#: [id number] DC DATE:06/13/18 STATUS: DIS IN [facility] [address] [place] [address] END OF REPORT
--- NOTE | ~2018-06-10 | MORECARE ---
CASE MANAGEMENT DISCHARGE SUMMARY PATIENT: SCOTT AQUINO ULICES UNIT: [id number] ADM DATE: 06/11/18 AGE: 58 : 56 SEX: M ROOM/BED: D.2674 AUTHOR: ASHLEY AGUILAR PHYSICIAN: REFERRING PHYSICIAN: CARMENZA ORTIZ MD DATE OF SERVICE: 06/13/18 Discharge Plan Patient Name: SCOTT AQUINO Facility: [facility]:[place] : 1960 Planned Disposition: Home Anticipated Discharge Date: 06/13/18 Discharge Date: Expected LOS: 2 Initial Reviewer: [email or web address] Initial Review Date: 06/13/2018 Generated: 06/13/18 1:23 pm Comments DCP- Discharge Planning Updated by [email or web address]: Gregoria Martinez on 06/13/18 11:[address] Patient Name: SCOTT AQUINO Admission Status: Urgent Accout number: [id number] Admission Date: 06-11-2018 : 1960 Admission Diagnosis: Attending: DIANA, Current LOS: 2 Anticipated DC Date: 06-13-2018 Planned Disposition: Home Primary Insurance: MEDICARE A & B Discharge Planning Comments: CM MET WITH PATIENT ABOUT DC PLANNING. PLANS TO DC TO HOME AND STATES SOMEONE WILL SAND SHOVELER. STATES HE HAS A CAREGIVER THAT COMES 3 DAYS A WEEK, STATES HAS IT THROUGH [facility]. CM WILL CONTINUE TO FOLLOW AND ASSIST NEEDED WITH DC PLANNING/NEEDS. Life Skills Trainer: Gregoria Martinez DCPIA - Discharge Planning Initial Assessment Updated by [email or web address]: Gregoria Martinez on 06/13/18 12:12 pm * Is the patient Alert and Oriented? Yes * PCP DIANA * Pharmacy ED * Preadmission Environment Home Alone * ADLs Independent * Equipment CPAP Walker Wheelchair * List name and contact numbers for known caregivers / representatives who currently or will assist patient after discharge: SISTER BAHENA, * Community resources currently utilized Private [facility] * Please name any agencies selected above. [facility] [phone], [facility] HAS A CAREGIVER THAT COMES 3 TIMES A WEEK. * Additional services required to return to the preadmission environment? No * Can the patient safely return to the preadmission environment? Yes * Has this patient been hospitalized within the prior 30 days at any hospital? No Last DP export: 06/13/18 11:12 Patient Name: SCOTT AQUINO Page [id number] at 1223 All edits/amendments must be made on the electronic document DICTATION DATE: 06/13/181222 CHALK MACHINE OPERATOR: BORIS 06/13/181222 RPT#: [id number] DC DATE: STATUS: ADM IN [facility] [address] [place] [address] END OF REPORT
--- NOTE | ~2018-06-10 | MORECARE ---
CASE MANAGEMENT DISCHARGE SUMMARY PATIENT: SCOTT AQUINO ULICES UNIT: [id number] ADM DATE: 06/11/18 AGE: 58 : 56 SEX: M ROOM/BED: D.2114 AUTHOR: ASHLEY AGUILAR PHYSICIAN: REFERRING PHYSICIAN: CARMENZA ORTIZ MD DATE OF SERVICE: 06/13/18 Discharge Plan Patient Name: SCOTT AQUINO [facility] [facility] 1960 Planned Disposition: Home Anticipated Discharge Date: 06/13/18 Discharge Date: Expected LOS: 2 Initial Reviewer: [email or web address] Initial Review Date: 06/13/2018 Generated: 06/13/18 1:12 pm DCPIA - Discharge Planning Initial Assessment Updated by [email or web address]: Gregoria Martinez on 06/13/18 12:12 pm * Is the patient Alert and Oriented? Yes * PCP DIANA * Pharmacy ED * Preadmission Environment Home Alone * ADLs Independent * Equipment CPAP Walker Wheelchair * List name and contact numbers for known caregivers / representatives who currently or will assist patient after discharge: SISTER BAHENA, * Community resources currently utilized [facility] * Please name any agencies selected above. [facility] [phone], [facility] HAS A CAREGIVER THAT COMES 3 TIMES A WEEK. * Additional services required to return to the preadmission environment? No * Can the patient safely return to the preadmission environment? Yes * Has this patient been hospitalized within the prior 30 days at any hospital? No Patient Name: SCOTT AQUINO Page 47802 at 1212 All edits/amendments must be made on the electronic document DICTATION DATE: 06/13/18 1212 SOFTWARE TEST AND VALIDATION ENGINEER: BORIS 06/13/18 1212 RPT#: [id number] [place] DATE: STATUS: ADM IN [facility] [address] [place] [address] END OF REPORT
[~2018-06-10 13:58] MED LIST changes: -HYDROCODONE-APA1 TAB PO; +NORCO 10-325 TA1 TAB PO; +TAZTIA XT360 MG
[2018-06-10] MEDS ORDERED: FOLIC ACID1 MG PO (14:21)
[2018-06-10] MEDS ORDERED: CARDIZEM CD180 MG PO (14:26)
[2018-06-10 14:56] LABS: BASOPHILS 0.7 % (0-2); EOSINOPHILS 2.4 % (0-7); HEMATOCRIT 40.4 % (42.0-54.0); IMMATURE GRANULOCYTES 0.3 % (0-5); LYMPHOCYTES 19.2 % (15-50); MCHC 34.7 g/dL (31.0-37.0); MCV 106.9 fL (80.0-100.0); MEAN PLATELET VOLUME 10.5 fL (7.4-10.4); MONOCYTES 9.9 % (2-11); NEUTROPHILS 67.5 % (40-80); PLATELET COUNT 104 10x3/uL (130-400); RBC 3.78 10x6/uL (4.20-6.10); WBC 5.9 10x3/uL (4.8-10.8)
[2018-06-10 15:27] LABS: ALBUMIN 3.5 g/dL (3.4-5.0); ANION GAP 15.6 mmol/L (8-16); BILIRUBIN - TOTAL 0.93 mg/dL (0.2-1.3); CALCIUM 9.7 mg/dL (8.5-10.1); CARBON DIOXIDE 25.1 mmol/L (21.0-32.0); CREATININE - SERUM 1.3 mg/dL (0.6-1.3); POTASSIUM - SERUM 4.7 mmol/L (3.5-5.1); PROTEIN - SERUM 7.2 g/dL (6.4-8.2); THYROID STIMULATING HORMONE 1.9 uIU/mL (0.36-3.74)
[2018-06-10 15:32] VITALS: BP 136/77; BMI 43.7
[2018-06-10] MEDS ORDERED: XARELTO10 MG PO (17:04)
[2018-06-10 19:07] LABS: APPEARANCE CLEAR (CLEAR); BILIRUBIN NEGATIVE (NEGATIVE); COLOR YELLOW (YELLOW); GLUCOSE NEGATIVE (NEGATIVE); KETONE NEGATIVE (NEGATIVE); NITRITE NEGATIVE (NEGATIVE); PH 6.5 (5.0-6.0); PROTEIN NEGATIVE (NEGATIVE); UROBILINOGEN NORMAL (NORMAL)
[2018-06-10 20:00] VITALS: BP 125/81
[2018-06-11] VITALS: BP 118/74
[2018-06-11 04:00] VITALS: BP 109/48
[2018-06-11 06:18] LABS: INR 1.18 (0.85-1.17); PROTIME 14.6 SECONDS (11.6-15.0)
[2018-06-11 07:01] LABS: BASOPHILS 0.4 % (0-2); EOSINOPHILS 2.9 % (0-7); HEMATOCRIT 37.4 % (42.0-54.0); HEMOGLOBIN 12.8 g/dL (13.5-17.5); IMMATURE GRANULOCYTES 0.2 % (0-5); LYMPHOCYTES 28.1 % (15-50); MCH 36.4 pg (26.0-34.0); MCHC 34.2 g/dL (31.0-37.0); MCV 106.3 fL (80.0-100.0); MEAN PLATELET VOLUME 10.7 fL (7.4-10.4); NEUTROPHILS 57.4 % (40-80); PLATELET COUNT 96 10x3/uL (130-400); RBC 3.52 10x6/uL (4.20-6.10); WBC 4.5 10x3/uL (4.8-10.8)
[2018-06-11 07:06] LABS: ANION GAP 13.9 mmol/L (8-16); BILIRUBIN - TOTAL 0.84 mg/dL (0.2-1.3); CALCIUM 8.9 mg/dL (8.5-10.1); CARBON DIOXIDE 26.1 mmol/L (21.0-32.0); CHOL - HDL RATIO 2.4 ratio (2.3-4.9); CREATININE - SERUM 1.1 mg/dL (0.6-1.3); LDL-HDL RATIO 0.9 ratio (1.5-3.5); PROTEIN - SERUM 6.4 g/dL (6.4-8.2)
[2018-06-11 07:31] LABS: PLATELET ESTIMATE DECREASED
[2018-06-11 08:14] VITALS: BP 128/73
[2018-06-11 11:52] VITALS: BP 123/75
[2018-06-11 14:17] VITALS: Ht 177.8 cm; Wt 137.9 kg
[2018-06-11 15:03] VITALS: BP 116/71
[2018-06-11 20:00] VITALS: BP 138/55
[2018-06-12] VITALS: BP 125/76
[2018-06-12 04:00] VITALS: BP 140/60
[2018-06-12 06:16] LABS: BASOPHILS 0.5 % (0-2); EOSINOPHILS 3.1 % (0-7); HEMOGLOBIN 12.9 g/dL (13.5-17.5); IMMATURE GRANULOCYTES 0.3 % (0-5); LYMPHOCYTES 33.2 % (15-50); MCH 36.4 pg (26.0-34.0); MCHC 33.9 g/dL (31.0-37.0); MCV 107.3 fL (80.0-100.0); MEAN PLATELET VOLUME 11.3 fL (7.4-10.4); MONOCYTES 10.1 % (2-11); NEUTROPHILS 52.8 % (40-80); PLATELET COUNT 93 10x3/uL (130-400); RBC 3.54 10x6/uL (4.20-6.10); RDW 13.8 % (11.5-14.5); WBC 3.9 10x3/uL (4.8-10.8)
[2018-06-12 06:36] LABS: INR 1.1 (0.85-1.17); PROTIME 13.8 SECONDS (11.6-15.0)
[2018-06-12 06:38] LABS: CALC OSMOLALITY 279 mosm/kg (275-300); CALCIUM 8.8 mg/dL (8.5-10.1); CARBON DIOXIDE 26.6 mmol/L (21.0-32.0); CHLORIDE - SERUM 105 mmol/L (98-107); GLUCOSE 103 mg/dL (74-106); POTASSIUM - SERUM 3.9 mmol/L (3.5-5.1); SODIUM 140 mmol/L (136-145); UREA NITROGEN 16 mg/dL (7-18); eGFR NON AFRICAN AMERICAN 81 mL/min (90-120)
[2018-06-12 07:33] LABS: FOLATE (FOLIC ACID) - SERUM >20.0 ng/mL (>3.0)
[2018-06-12 07:48] VITALS: BP 139/81
[2018-06-12 11:31] VITALS: BP 139/81
[2018-06-12 20:00] VITALS: BP 132/73
[2018-06-13] VITALS: BP 115/72
[2018-06-13 04:00] VITALS: BP 118/74
[2018-06-13 06:11] LABS: HEMATOCRIT 36.6 % (42.0-54.0); HEMOGLOBIN 12.8 g/dL (13.5-17.5); MCH 36.6 pg (26.0-34.0); MEAN PLATELET VOLUME 10.2 fL (7.4-10.4); NEUTROPHILS 63.4 % (40-80); PLATELET COUNT 84 10x3/uL (130-400); RDW 13.4 % (11.5-14.5); WBC 4.3 10x3/uL (4.8-10.8)
[2018-06-13 06:14] LABS: MCV 104.6 fL (80.0-100.0)
[2018-06-13 06:26] LABS: ALBUMIN 2.9 g/dL (3.4-5.0); ANION GAP 12.8 mmol/L (8-16); BILIRUBIN - TOTAL 0.69 mg/dL (0.2-1.3); CALCIUM 8.7 mg/dL (8.5-10.1); CARBON DIOXIDE 26.2 mmol/L (21.0-32.0); CREATININE - SERUM 1.1 mg/dL (0.6-1.3); PROTEIN - SERUM 6.2 g/dL (6.4-8.2)
[2018-06-13 08:27] VITALS: BP 145/85
[2018-06-13] MEDS ORDERED: LEVSIN/ANASP0.125 MG SL (10:58)
[2018-06-13] MEDS ORDERED: ELIQUIS5 MG PO (10:58)
[2018-06-13] MEDS ORDERED: CARDIZEM CD240 MG PO (10:59)
[2018-06-13] MEDS ORDERED: LEVAQUIN750 MG PO (11:03)
[2018-06-13] MEDS ORDERED: PROTONIX40 MG PO (11:08)
[2018-06-13] MEDS ORDERED: PEPCID PO (11:08)
[2018-06-13] MEDS ORDERED: PEPCID40 MG PO (11:08)
[2018-06-13 11:59] VITALS: BP 143/83
== END 2018-06-13 15:49 | disposition home or self-care (01) | DRG 393 ==
LOC: D.M2 13:58 → OBSVTIME 13:58 → D.M2 13:58
PROVIDERS: Family Medicine; Internal Medicine Gastroenterology; Internal Medicine Nephrology
PROC: 0DB68ZX Excision of Stomach, Via Natural or Artificial Opening Endoscopic, Diagnostic (ICD-10-PCS; 2018-06-12)
PROC: 0DB48ZX Excision of Esophagogastric Junction, Via Natural or Artificial Opening Endoscopic, Diagnostic (ICD-10-PCS; 2018-06-12)
PROC: 0DB98ZX Excision of Duodenum, Via Natural or Artificial Opening Endoscopic, Diagnostic (ICD-10-PCS; principal; 2018-06-12 16:15)
DX: K31.7 Polyp of stomach and duodenum (principal); J18.9 Pneumonia, unspecified organism; F10.239 Alcohol dependence with withdrawal, unspecified; F17.213 Nicotine dependence, cigarettes, with withdrawal; I48.91 Unspecified atrial fibrillation; K29.00 Acute gastritis without bleeding; K20.9 Esophagitis, unspecified; K22.4 Dyskinesia of esophagus; I10 Essential (primary) hypertension; E78.5 Hyperlipidemia, unspecified; E11.9 Type 2 diabetes mellitus without complications; G40.909 Epilepsy, unspecified, not intractable, without status epilepticus; G47.419 Narcolepsy without cataplexy; E03.9 Hypothyroidism, unspecified; D53.9 Nutritional anemia, unspecified

== ENCOUNTER 2018-07-16 04:47 | Inpatient (IN) | payer MEDICARE ==
[~2018-07-16] VITALS: Ht 177.8 cm; Wt 131.5 kg
--- NOTE | ~2018-07-16 | CN ---
PATIENT NAME:SCOTT AQUINO MEDICAL RECORD: [id number] : 56 LOCATION:D.MS [id number] ADMIT DATE: 07/16/18 ACCOUNT: [id number] CONSULTING PHYSICIAN: BIJU ORELLANA MD REFERRING PHYSICIAN: ANA LAURA FARIAS MD DATE OF CONSULTATION: 07/18/2018 CARDIOLOGY CONSULTATION DIAGNOSES: 1. Atrial fibrillation. 2. Tachycardia. 3. Small-bowel obstruction. 4. Diabetes. 5. Coronary artery disease. 6. Hypertension. HISTORY OF PRESENT ILLNESS: This is a gentleman who presents with abdominal pain, found to have small-bowel obstruction. He does have a history of atrial fibrillation. He was previously on diltiazem, Eliquis, and sotalol for the atrial fibrillation. These meds have been held secondary to being n.p.o. and his bowel obstruction. Now, his atrial fibrillation is with rapid ventricular response. He continues to be n.p.o. PHYSICAL EXAMINATION: GENERAL APPEARANCE: Well-nourished, well-developed, appears stated age. Level of distress, comfortable. PSYCHIATRIC: Mental status, alert, normal affect. Orientation, oriented to time, place and person. EYES: Lids and conjunctiva, noninjected. No discharge, no pallor. ENT: Lips, teeth, gums, normal dentition. Oropharynx, no cyanosis, no pallor. NECK: Carotid arteries, bilateral normal upstroke, no bruits, no thrills. JUGULAR VEINS: No jugular venous pressure or distention. CERVICAL LYMPH NODES: Nontender, nonenlarged. THYROID: Not enlarged. Nontender. No nodules. LUNGS: Respiratory effort, unlabored. CHEST: Normal curvature. No thoracic deformity. No chest wall tenderness. Percussion, resonant. Auscultation, clear. No wheezes, no rales, no rhonchi. CARDIOVASCULAR: Precordial exam, nondisplaced. No heaves or pericardial thrills. Rate and rhythm, regular. Heart sounds, normal S1, normal S2. No S3, no gallop, no rub. Systolic murmur, not heard. Diastolic murmur, not heard. EXTREMITIES: No cyanosis, no edema. Peripheral pulses, full and equal in all extremities, except as noted. No bruits appreciated. ABDOMEN: Soft, nondistended. Normal aorta. No bruit. Nontender. No masses. Liver, nontender, no hepatomegaly. Spleen, nontender, no splenomegaly. MUSCULOSKELETAL: No joint tenderness. No joint swelling. No erythema. NEUROLOGICAL: Normal gait, normal strength, normal tone. SKIN: Warm and dry. OVERALL IMPRESSION: Atrial fibrillation, uncontrolled rate. Now that he is off his medications, we will use Lopressor IV 10 mg q.4 hours to control his rate. Restarting his oral medications when possible from a GI standpoint. TRANSINT:[id number] Voice Confirmation ID: [id number] DOCUMENT ID: [id number] CONSULT REPORT [id number] SCOTT AQUINO JEFFREY MD at 1025 CC: [id number] DICTATION DATE: 07/18/18948 ACCESS LIAISON: 07/18/18 1118 DIS IN 07/24/18 [id number] [place] [address]
--- NOTE | ~2018-07-16 | MORECARE ---
CASE MANAGEMENT DISCHARGE SUMMARY PATIENT: SCOTT AQUINO ULICES UNIT: [id number] ADM DATE: 07/16/18 AGE: 58 : 56 SEX: M ROOM/BED: D.2205 AUTHOR: ASHLEY AGUILAR PHYSICIAN: REFERRING PHYSICIAN: ANA LAURA FARIAS MD DATE OF SERVICE: 07/18/18 Discharge Plan Patient Name: SCOTT AQUINO [facility] [facility] 1960 Planned Disposition: Anticipated Discharge Date: Discharge Date: Expected LOS: Initial Reviewer: [email or web address] Initial Review Date: 07/16/2018 Generated: 07/18/18 4:29 pm Comments DCP- Discharge Planning Updated by [email or web address]: Jud Del Valle on 07/18/18 2:[address] attempted to see patient, but he was sleeping. He does have a cpap in the room and he is current with [facility]. CM will attempt to see again at a later date Patient Name: SCOTT AQUINO Page 18437 at 1529 All edits/amendments must be made on the electronic document DICTATION DATE: 07/18/181527 DIRECTOR GLOBAL STRATEGIC PUBLISHER SALES: BORIS 07/18/181527 RPT#: [id number] DC DATE: STATUS: ADM IN [facility] [address] [place] [address] END OF REPORT
--- NOTE | ~2018-07-16 | MORECARE ---
CASE MANAGEMENT DISCHARGE SUMMARY PATIENT: SCOTT AQUINO UNIT: [id number] ADM DATE: 07/16/18 AGE: 58 : 56 SEX: M ROOM/BED: D.2205 AUTHOR: LAUREN,DOC PHYSICIAN: REFERRING PHYSICIAN: ANA LAURA FARIAS MD DATE OF SERVICE: 07/22/18 Discharge Plan Patient Name: SCOTT AQUINO Facility: [facility]:[place] : 1960 Planned Disposition: Home with Home Health Anticipated Discharge Date: Discharge Date: Expected LOS: Initial Reviewer: [email or web address] Initial Review Date: 07/16/2018 Generated: 07/22/18 5:00 pm Comments DCP- Discharge Planning Updated by [email or web address]: Jud Del Valle on 07/22/18 2:[address] IMM served and explained DCP- Discharge Planning Updated by [email or web address]: Jud Del Valle on 07/22/18 2:[address] Patient Name: SCOTT AQUINO Admission Status: ER Accout number: [id number] Admission Date: 07-16-2018 : 1960 Admission Diagnosis:UNSP INTESTNL OBST, UNSP TO PARTIAL VERSUS COMPLETE Attending: ANA LAURA FARIAS Current LOS: 6 Anticipated DC Date: Planned Disposition: Primary Insurance: MEDICARE A & B Discharge Planning Comments: CM met with patient to assess discharge planning needs. Patient lives at home where [place] return [place]. He is current with [facility] and also has [phone]) 3 days a week. His daughter in law will be the one to drive him home at [place]. He has a CPAP machine, walker and wheelchair. He stated he is safe to return home. CM will continue to follow and assist with DC planning as needed Vacuum Furnace Operator: Jud Del Valle DCP- Discharge Planning Updated by [email or web address]: Jud Del Valle on 07/18/18 2:[address] attempted to see patient, but he was sleeping. He does have a cpap in the room and he is current with [facility]. CM will attempt to see again at a later date DCPIA - Discharge Planning Initial Assessment Updated by [email or web address]: Jud Del Valle on 07/22/18 3:54 pm * Is the patient Alert and Oriented? Yes * How many steps to enter\exit or inside your home? * PCP claus * Pharmacy [facility] * Preadmission Environment Home Alone * ADLs Independent * Equipment CPAP Rolling Walker Walker Wheelchair * List name and contact numbers for known caregivers / representatives who currently or will assist patient after discharge: Ann () [phone] * Verbal permission to speak to the caregivers and representatives has been obtained from the patient. N/A * Community resources currently utilized [facility] * Please name any agencies selected above. [facility] * Additional services required to return to the preadmission environment? No * Can the patient safely return to the preadmission environment? Yes * Has this patient been hospitalized within the prior 30 days at any hospital? No Coverage Notice Reviewer: [id number] - Jud Del Valle Notice Issued Date-Time: 07/22/2018 14:40 Notice Type: IM Discharge Notice Notice Delivered To: Patient Relationship to Patient: Electrochemist Name: Delivery Method: HAND - Hand Delivered Dalia Days: Prior Verbal Notification: Recipient Understood Notice: Yes Recipient Signature: Yes Med Rec Note Co-signed by Attending: Coverage Notice Comment: Last DP export: 07/18/18 2:29 Patient Name: SCOTT AQUINO Page [phone] at 1600 All edits/amendments must be made on the electronic document DICTATION DATE: 07/22/18 1600 FLOWER ARRANGER: BORIS 07/22/18 1600 RPT#: [id number] DC DATE: STATUS: ADM IN [facility] [address] [place] [address] END OF REPORT
--- NOTE | ~2018-07-16 | MORECARE ---
CASE MANAGEMENT DISCHARGE SUMMARY PATIENT: SCOTT AQUINO ULICES UNIT: [id number] ADM DATE: 07/16/18 AGE: 58 : 56 SEX: M ROOM/BED: D.2205 AUTHOR: LAUREN,DOC PHYSICIAN: REFERRING PHYSICIAN: ANA LAURA FARIAS MD DATE OF SERVICE: 07/24/18 Discharge Plan Patient Name: SCOTT AQUINO Facility: [facility]:[place] : 1960 Planned Disposition: Home with Home Health Anticipated Discharge Date: Discharge Date: Expected LOS: Initial Reviewer: [email or web address] Initial Review Date: 07/16/2018 Generated: 07/24/18 9:59 am Comments DCP- Discharge Planning Updated by [email or web address]: Jud Del Valle on 07/24/18 7:[address] PATIENT WILL BE DISCHARGED TODAY, INFO SENT TO [facility] WHERE HE IS CURRENT. DENIES ANY OTHER NEEDS. DCP- Discharge Planning Updated by [email or web address]: Jud Del Valle on 07/22/18 2:[address] IMM served and explained DCP- Discharge Planning Updated by [email or web address]: Jud Del Valle on 07/22/18 2:[address] Patient Name: SCOTT AQUINO Admission Status: ER Accout number: [id number] Admission Date: 07-16-2018 : 1960 Admission Diagnosis:UNSP INTESTNL OBST, UNSP TO PARTIAL VERSUS COMPLETE Attending: ANA LAURA FARIAS Current LOS: 6 Anticipated DC Date: Planned Disposition: Primary Insurance: MEDICARE A & B Discharge Planning Comments: CM met with patient to assess discharge planning needs. Patient lives at home where he [place] to return at [place]. He is current with [facility] and also has [facility]([phone]) 3 days a week. His daughter in law will be the one to drive him home at [place]. He has a CPAP machine, walker and wheelchair. He stated he is safe to return home. CM will continue to follow and assist with DC planning as needed Laborer Cook House: Jud Del Valle DCP- Discharge Planning Updated by [email or web address]: Jud Del Valle on 07/18/18 2:[address] attempted to see patient, but he was sleeping. He does have a cpap in the room and [facility] CM will attempt to see again at a later date DCPIA - Discharge Planning Initial Assessment Updated by [email or web address]: Jud Del Valle on 07/22/18 3:54 pm * Is the patient Alert and Oriented? Yes * How many steps to enter\exit or inside your home? * PCP claus * Pharmacy [facility] * Preadmission Environment Home Alone * ADLs Independent * Equipment CPAP Rolling Walker Walker Wheelchair * List name and contact numbers for known caregivers / representatives who currently or will assist patient after discharge: Ann (sister) [phone] * Verbal permission to speak to the caregivers and representatives has been obtained from the patient. N/A * Community resources currently utilized [facility] * Please name any agencies selected above. [facility] * Additional services required to return to the preadmission environment? No * Can the patient safely return to the preadmission environment? Yes * Has this patient been hospitalized within the prior 30 days at any hospital? No External Providers [facility] Next Contact Date: Service Request Date: Service Type: Resolution: Reviewer: Comments: Coverage Notice Reviewer: [email or web address] - Jud Del Valle Notice Issued Date-Time: 07/22/2018 14:40 Notice Type: IM Discharge Notice Notice Delivered To: Patient Relationship to Patient: It Risk And Assurance Manager Name: Delivery Method: HAND - Hand Delivered Dalia Days: Prior Verbal Notification: Recipient Understood Notice: Yes Recipient Signature: Yes Med Rec Note Co-signed by Attending: Coverage Notice Comment: Last DP export: 07/22/18 3:00 p Patient Name: SCOTT AQUINO Page 48498 at 0859 All edits/amendments must be made on the electronic document DICTATION DATE: 07/24/18858 DISPATCHER REFINERY: BORIS 07/24/18858 RPT#: [id number] DC DATE: STATUS: ADM IN [facility] [address] [place] [address] END OF REPORT
[~2018-07-16 04:47] MED LIST changes: +CARDIZEM CD180 MG PO; +CARDIZEM CD240 MG PO; +ELIQUIS5 MG PO; +FOLIC ACID1 MG PO; +LEVAQUIN750 MG PO; +LEVSIN/ANASP0.125 MG SL; +PEPCID PO; +PEPCID40 MG PO; +XARELTO10 MG PO
[2018-07-16 05:37] LABS: BASOPHILS 0.4 % (0-2); EOSINOPHILS 1.8 % (0-7); HEMATOCRIT 41.2 % (42.0-54.0); HEMOGLOBIN 14.5 g/dL (13.5-17.5); IMMATURE GRANULOCYTES 0.3 % (0-5); MCH 36.6 pg (26.0-34.0); MCHC 35.2 g/dL (31.0-37.0); MEAN PLATELET VOLUME 10.4 fL (7.4-10.4); MONOCYTES 9.2 % (2-11); NEUTROPHILS 67.3 % (40-80); RBC 3.96 10x6/uL (4.20-6.10); RDW 13.4 % (11.5-14.5); WBC 7.6 10x3/uL (4.8-10.8)
[2018-07-16 05:38] LABS: PLATELET COUNT 124 10x3/uL (130-400)
[2018-07-16 05:50] LABS: ALBUMIN 3.9 g/dL (3.4-5.0); ALKALINE PHOSPHATASE 78 U/L (46-116); ALT (SGPT) 37 U/L (10-68); BILIRUBIN - TOTAL 0.51 mg/dL (0.2-1.3); CALC OSMOLALITY 275 mosm/kg (275-300); CALCIUM 9.4 mg/dL (8.5-10.1); CARBON DIOXIDE 24.3 mmol/L (21.0-32.0); CHLORIDE - SERUM 100 mmol/L (98-107); CREATININE - SERUM 1.2 mg/dL (0.6-1.3); GLUCOSE 128 mg/dL (74-106); POTASSIUM - SERUM 3.9 mmol/L (3.5-5.1); SODIUM 137 mmol/L (136-145); UREA NITROGEN 13 mg/dL (7-18); eGFR NON AFRICAN AMERICAN 66 mL/min (90-120)
[2018-07-16 05:54] LABS: AMYLASE - SERUM 46 U/L (25-115); LIPASE 370 U/L (73-393)
[2018-07-16 06:03] LABS: TROPONIN-I < 0.017 ng/mL (0.000-0.060)
[2018-07-16 08:30] VITALS: BP 116/75
[2018-07-16] MEDS ORDERED: ADDERALL 30 MG30 MG PO (20:39)
[2018-07-16] MEDS ORDERED: MULTI-DAY VITAM1 TAB PO (20:39)
[2018-07-16] MEDS ORDERED: B-12 IM (20:43)
[2018-07-16 22:44] VITALS: BP 116/75; BMI 41.6
[2018-07-17 01:37] VITALS: BP 125/87
[2018-07-17 05:18] LABS: ALKALINE PHOSPHATASE 63 U/L (46-116); ALT (SGPT) 41 U/L (10-68); BILIRUBIN - TOTAL 0.85 mg/dL (0.2-1.3); CALC OSMOLALITY 279 mosm/kg (275-300); CALCIUM 7.7 mg/dL (8.5-10.1); CARBON DIOXIDE 25.3 mmol/L (21.0-32.0); CHLORIDE - SERUM 107 mmol/L (98-107); CREATININE - SERUM 0.9 mg/dL (0.6-1.3); GLUCOSE 83 mg/dL (74-106); MAGNESIUM - SERUM 1.7 mg/dL (1.8-2.4); POTASSIUM - SERUM 3.9 mmol/L (3.5-5.1); PROTEIN - SERUM 6.4 g/dL (6.4-8.2); SODIUM 141 mmol/L (136-145); UREA NITROGEN 12 mg/dL (7-18); eGFR NON AFRICAN AMERICAN > 90 mL/min (90-120)
[2018-07-17 05:20] LABS: ALBUMIN 2.9 g/dL (3.4-5.0)
[2018-07-17 05:50] LABS: BASOPHILS 0.5 % (0-2); EOSINOPHILS 1.8 % (0-7); HEMATOCRIT 38.7 % (42.0-54.0); IMMATURE GRANULOCYTES 0.5 % (0-5); MCH 35.7 pg (26.0-34.0); MCHC 33.6 g/dL (31.0-37.0); MCV 106.3 fL (80.0-100.0); MONOCYTES 11.7 % (2-11); NEUTROPHILS 64.5 % (40-80); RBC 3.64 10x6/uL (4.20-6.10); RDW 13.8 % (11.5-14.5); WBC 3.9 10x3/uL (4.8-10.8)
[2018-07-17 05:51] LABS: PLATELET COUNT 97 10x3/uL (130-400)
[2018-07-17 06:06] VITALS: BP 144/84
[2018-07-17 06:53] LABS: APPEARANCE CLEAR (CLEAR); BILIRUBIN NEGATIVE (NEGATIVE); COLOR YELLOW (YELLOW); GLUCOSE NEGATIVE (NEGATIVE); KETONE MODERATE mg/dL (NEGATIVE); NITRITE NEGATIVE (NEGATIVE); PROTEIN NEGATIVE (NEGATIVE); SPECIFIC GRAVITY 1.015 (1.005-1.020); UROBILINOGEN NORMAL (NORMAL)
[2018-07-17 09:14] VITALS: BP 144/84
[2018-07-17 10:11] VITALS: Ht 177.8 cm; Wt 131.5 kg
[2018-07-17 12:41] VITALS: BP 125/87
[2018-07-17 16:48] VITALS: BP 144/84
[2018-07-17 20:00] VITALS: BP 116/89
[2018-07-18] VITALS: BP 143/81
[2018-07-18 03:54] LABS: BASOPHILS 0.5 % (0-2); EOSINOPHILS 2.7 % (0-7); HEMATOCRIT 38.2 % (42.0-54.0); HEMOGLOBIN 12.8 g/dL (13.5-17.5); IMMATURE GRANULOCYTES 0.2 % (0-5); LYMPHOCYTES 28.3 % (15-50); MCHC 33.5 g/dL (31.0-37.0); MCV 107.3 fL (80.0-100.0); MEAN PLATELET VOLUME 11.1 fL (7.4-10.4); MONOCYTES 9.1 % (2-11); NEUTROPHILS 59.2 % (40-80); PLATELET COUNT 104 10x3/uL (130-400); RBC 3.56 10x6/uL (4.20-6.10); RDW 13.6 % (11.5-14.5); WBC 4.4 10x3/uL (4.8-10.8)
[2018-07-18 04:00] VITALS: BP 142/86
[2018-07-18 04:06] LABS: ALBUMIN 2.9 g/dL (3.4-5.0); ALKALINE PHOSPHATASE 58 U/L (46-116); BILIRUBIN - TOTAL 0.76 mg/dL (0.2-1.3); CALCIUM 8.1 mg/dL (8.5-10.1); CARBON DIOXIDE 25.2 mmol/L (21.0-32.0); CHLORIDE - SERUM 105 mmol/L (98-107); CREATININE - SERUM 0.9 mg/dL (0.6-1.3); MAGNESIUM - SERUM 1.8 mg/dL (1.8-2.4); POTASSIUM - SERUM 3.8 mmol/L (3.5-5.1); PROTEIN - SERUM 6.8 g/dL (6.4-8.2); SODIUM 139 mmol/L (136-145); UREA NITROGEN 11 mg/dL (7-18); eGFR NON AFRICAN AMERICAN > 90 mL/min (90-120)
[2018-07-18 04:11] LABS: ALT (SGPT) 30 U/L (10-68); CALC OSMOLALITY 274 mosm/kg (275-300); GLUCOSE 68 mg/dL (74-106)
[2018-07-18 09:15] VITALS: BP 125/85
[2018-07-18 12:39] VITALS: BP 139/86
[2018-07-18 16:33] VITALS: BP 110/80
[2018-07-18 20:08] VITALS: BP 113/79
[2018-07-19] VITALS: BP 126/88
[2018-07-19 04:00] VITALS: BP 127/89
[2018-07-19 06:14] LABS: BASOPHILS 0.5 % (0-2); EOSINOPHILS 2.1 % (0-7); HEMATOCRIT 37.2 % (42.0-54.0); HEMOGLOBIN 12.4 g/dL (13.5-17.5); IMMATURE GRANULOCYTES 0.5 % (0-5); LYMPHOCYTES 28.3 % (15-50); MCH 35.7 pg (26.0-34.0); MCHC 33.3 g/dL (31.0-37.0); MCV 107.2 fL (80.0-100.0); MEAN PLATELET VOLUME 11.1 fL (7.4-10.4); MONOCYTES 9.1 % (2-11); NEUTROPHILS 59.5 % (40-80); PLATELET COUNT 90 10x3/uL (130-400); RBC 3.47 10x6/uL (4.20-6.10); RDW 13.8 % (11.5-14.5); WBC 4.3 10x3/uL (4.8-10.8)
[2018-07-19 06:49] LABS: ALBUMIN 2.8 g/dL (3.4-5.0); ALKALINE PHOSPHATASE 57 U/L (46-116); ALT (SGPT) 26 U/L (10-68); BILIRUBIN - TOTAL 0.66 mg/dL (0.2-1.3); CALC OSMOLALITY 281 mosm/kg (275-300); CALCIUM 8.4 mg/dL (8.5-10.1); CARBON DIOXIDE 23.1 mmol/L (21.0-32.0); CHLORIDE - SERUM 107 mmol/L (98-107); CREATININE - SERUM 0.8 mg/dL (0.6-1.3); GLUCOSE 74 mg/dL (74-106); MAGNESIUM - SERUM 1.6 mg/dL (1.8-2.4); POTASSIUM - SERUM 3.8 mmol/L (3.5-5.1); PROTEIN - SERUM 6.5 g/dL (6.4-8.2); SODIUM 142 mmol/L (136-145); UREA NITROGEN 12 mg/dL (7-18); eGFR NON AFRICAN AMERICAN > 90 mL/min (90-120)
[2018-07-19 08:51] VITALS: BP 138/99
[2018-07-19 12:53] VITALS: BP 131/77
[2018-07-19 16:25] VITALS: BP 129/85
[2018-07-19 20:00] VITALS: BP 124/76
[2018-07-20] VITALS: BP 168/84
[2018-07-20 04:00] VITALS: BP 164/86
[2018-07-20 05:34] LABS: BASOPHILS 0.2 % (0-2); EOSINOPHILS 2.5 % (0-7); HEMATOCRIT 36.1 % (42.0-54.0); IMMATURE GRANULOCYTES 0.2 % (0-5); LYMPHOCYTES 25.9 % (15-50); MCH 35.5 pg (26.0-34.0); MCHC 33.2 g/dL (31.0-37.0); MCV 106.8 fL (80.0-100.0); MEAN PLATELET VOLUME 10.8 fL (7.4-10.4); MONOCYTES 9.5 % (2-11); NEUTROPHILS 61.7 % (40-80); RBC 3.38 10x6/uL (4.20-6.10); RDW 13.6 % (11.5-14.5); WBC 4.4 10x3/uL (4.8-10.8)
[2018-07-20 05:50] LABS: PLATELET COUNT 120 10x3/uL (130-400)
[2018-07-20 05:53] LABS: ALBUMIN 2.8 g/dL (3.4-5.0); ALKALINE PHOSPHATASE 53 U/L (46-116); ALT (SGPT) 21 U/L (10-68); BILIRUBIN - TOTAL 0.65 mg/dL (0.2-1.3); CALC OSMOLALITY 281 mosm/kg (275-300); CALCIUM 8.4 mg/dL (8.5-10.1); CARBON DIOXIDE 23.4 mmol/L (21.0-32.0); CHLORIDE - SERUM 107 mmol/L (98-107); CREATININE - SERUM 0.8 mg/dL (0.6-1.3); GLUCOSE 79 mg/dL (74-106); MAGNESIUM - SERUM 1.5 mg/dL (1.8-2.4); POTASSIUM - SERUM 3.4 mmol/L (3.5-5.1); PROTEIN - SERUM 6.4 g/dL (6.4-8.2); SODIUM 142 mmol/L (136-145); UREA NITROGEN 12 mg/dL (7-18); eGFR NON AFRICAN AMERICAN > 90 mL/min (90-120)
[2018-07-20 09:31] VITALS: BP 129/84
[2018-07-20 12:37] VITALS: BP 117/63
[2018-07-20 14:57] LABS: AMYLASE - SERUM 22 U/L (25-115); LIPASE 126 U/L (73-393)
[2018-07-20 17:28] VITALS: BP 118/77
[2018-07-20 20:00] VITALS: BP 117/89
[2018-07-21] VITALS (7 sets, daily range): BP systolic 123–163; BP diastolic 63–108
[2018-07-21 05:21] LABS: BASOPHILS 0.2 % (0-2); EOSINOPHILS 1.8 % (0-7); HEMATOCRIT 35.1 % (42.0-54.0); HEMOGLOBIN 11.8 g/dL (13.5-17.5); IMMATURE GRANULOCYTES 0.2 % (0-5); LYMPHOCYTES 23.7 % (15-50); MCH 35.6 pg (26.0-34.0); MCHC 33.6 g/dL (31.0-37.0); MEAN PLATELET VOLUME 10.5 fL (7.4-10.4); MONOCYTES 9.7 % (2-11); NEUTROPHILS 64.4 % (40-80); PLATELET COUNT 108 10x3/uL (130-400); RBC 3.31 10x6/uL (4.20-6.10); RDW 13.7 % (11.5-14.5); WBC 4.4 10x3/uL (4.8-10.8)
[2018-07-21 06:34] LABS: ALBUMIN 2.8 g/dL (3.4-5.0); ALKALINE PHOSPHATASE 51 U/L (46-116); ALT (SGPT) 21 U/L (10-68); AMYLASE - SERUM 26 U/L (25-115); BILIRUBIN - TOTAL 0.58 mg/dL (0.2-1.3); CALC OSMOLALITY 279 mosm/kg (275-300); CALCIUM 8.5 mg/dL (8.5-10.1); CARBON DIOXIDE 21.4 mmol/L (21.0-32.0); CHLORIDE - SERUM 106 mmol/L (98-107); CREATININE - SERUM 0.8 mg/dL (0.6-1.3); GLUCOSE 73 mg/dL (74-106); LIPASE 144 U/L (73-393); MAGNESIUM - SERUM 1.4 mg/dL (1.8-2.4); POTASSIUM - SERUM 3.7 mmol/L (3.5-5.1); PROTEIN - SERUM 6.2 g/dL (6.4-8.2); SODIUM 141 mmol/L (136-145); UREA NITROGEN 12 mg/dL (7-18); eGFR NON AFRICAN AMERICAN > 90 mL/min (90-120)
[2018-07-22 05:07] LABS: BASOPHILS 0.5 % (0-2); HEMATOCRIT 35.8 % (42.0-54.0); IMMATURE GRANULOCYTES 0.2 % (0-5); LYMPHOCYTES 25.8 % (15-50); MCH 35.4 pg (26.0-34.0); MCHC 33.5 g/dL (31.0-37.0); MCV 105.6 fL (80.0-100.0); MEAN PLATELET VOLUME 10.6 fL (7.4-10.4); NEUTROPHILS 59.5 % (40-80); PLATELET COUNT 116 10x3/uL (130-400); RBC 3.39 10x6/uL (4.20-6.10); RDW 13.5 % (11.5-14.5); WBC 4.4 10x3/uL (4.8-10.8)
[2018-07-22 05:35] LABS: ALBUMIN 2.7 g/dL (3.4-5.0); ALKALINE PHOSPHATASE 48 U/L (46-116); AMYLASE - SERUM 26 U/L (25-115); BILIRUBIN - TOTAL 0.76 mg/dL (0.2-1.3); CALCIUM 8.4 mg/dL (8.5-10.1); CARBON DIOXIDE 25.5 mmol/L (21.0-32.0); CHLORIDE - SERUM 107 mmol/L (98-107); CREATININE - SERUM 0.9 mg/dL (0.6-1.3); GLUCOSE 75 mg/dL (74-106); LIPASE 128 U/L (73-393); MAGNESIUM - SERUM 1.2 mg/dL (1.8-2.4); POTASSIUM - SERUM 3.4 mmol/L (3.5-5.1); PROTEIN - SERUM 6.3 g/dL (6.4-8.2); SODIUM 144 mmol/L (136-145); eGFR NON AFRICAN AMERICAN > 90 mL/min (90-120)
[2018-07-22 05:47] LABS: ALT (SGPT) 15 U/L (10-68); CALC OSMOLALITY 283 mosm/kg (275-300); UREA NITROGEN 7 mg/dL (7-18)
[2018-07-22 11:39] VITALS: BP 155/60
[2018-07-22 15:54] VITALS: BP 123/75
[2018-07-22 23:03] VITALS: BP 123/83
[2018-07-23] VITALS: BP 138/75
[2018-07-23 04:47] LABS: BASOPHILS 0.2 % (0-2); EOSINOPHILS 2.6 % (0-7); HEMATOCRIT 36.4 % (42.0-54.0); HEMOGLOBIN 12.2 g/dL (13.5-17.5); IMMATURE GRANULOCYTES 0.2 % (0-5); LYMPHOCYTES 23.6 % (15-50); MCH 35.6 pg (26.0-34.0); MCHC 33.5 g/dL (31.0-37.0); MCV 106.1 fL (80.0-100.0); MEAN PLATELET VOLUME 10.7 fL (7.4-10.4); MONOCYTES 11.7 % (2-11); NEUTROPHILS 61.7 % (40-80); PLATELET COUNT 120 10x3/uL (130-400); RBC 3.43 10x6/uL (4.20-6.10); RDW 13.5 % (11.5-14.5); WBC 4.2 10x3/uL (4.8-10.8)
[2018-07-23 05:06] LABS: CALC OSMOLALITY 283 mosm/kg (275-300); CALCIUM 8.6 mg/dL (8.5-10.1); CARBON DIOXIDE 23.8 mmol/L (21.0-32.0); CHLORIDE - SERUM 108 mmol/L (98-107); CREATININE - SERUM 0.9 mg/dL (0.6-1.3); GLUCOSE 82 mg/dL (74-106); POTASSIUM - SERUM 3.6 mmol/L (3.5-5.1); SODIUM 144 mmol/L (136-145); UREA NITROGEN 7 mg/dL (7-18); eGFR NON AFRICAN AMERICAN > 90 mL/min (90-120)
[2018-07-23 05:11] LABS: MAGNESIUM - SERUM 1.6 mg/dL (1.8-2.4)
[2018-07-23 05:57] VITALS: BP 131/93
[2018-07-23 08:34] VITALS: BP 144/92
[2018-07-23 12:03] VITALS: BP 152/107
[2018-07-23 16:21] VITALS: BP 142/91
[2018-07-23] MEDS ORDERED: MIRALAX17 GM PO (16:51)
[2018-07-23] MEDS ORDERED: CARAFATE1 G PO (16:52)
[2018-07-23] MEDS ORDERED: PROTONIX40 MG PO (16:53)
[2018-07-23] MEDS ORDERED: Mylicon / Gas-X Che PO (16:53)
[2018-07-23] MEDS ORDERED: NORCO 7.5/325 T1 TA1 PO (16:54)
[2018-07-23] MEDS ORDERED: COLACE100 MG PO (16:54)
[2018-07-23] MEDS ORDERED: ZOFRAN4 MG PO (17:02)
[2018-07-23] MEDS ORDERED: MAG-OX 400 MG400 MG PO (17:10)
[2018-07-23 20:00] VITALS: BP 137/88
[2018-07-24 04:30] VITALS: BP 134/99
[2018-07-24 10:20] VITALS: BP 151/95
== END 2018-07-24 11:02 | disposition home health service (06) | DRG 389 ==
LOC: D.ER 04:47 → D.MS 08:01 → D.EDHOLD 08:01 → D.MS 16:33
PROVIDERS: Family Medicine; Internal Medicine Nephrology
DX: K56.609 Unspecified intestinal obstruction, unspecified as to partial versus complete obstruction (principal); N39.0 Urinary tract infection, site not specified; N17.9 Acute kidney failure, unspecified; F17.213 Nicotine dependence, cigarettes, with withdrawal; E11.649 Type 2 diabetes mellitus with hypoglycemia without coma; I10 Essential (primary) hypertension; G47.419 Narcolepsy without cataplexy; I48.91 Unspecified atrial fibrillation